=== PATIENT | female | born 1990 | race Caucasian/White ===

== ENCOUNTER 2016-05-01 05:49 | Outpatient (CLI) | payer OTHER ==
[~2016-05-01] VITALS: Ht 165.1 cm; Wt 65.5 kg
[~2016-05-01 05:49] MED LIST: PRENATAL1 TA7 PO
[2016-05-01 06:18] VITALS: BP 126/94; PULSE 69; TEMP 98.1
[2016-05-01 07:17] VITALS: BP 129/85; PULSE 67
== END 2016-05-01 07:25 | disposition home or self-care (01) ==
LOC: LDRO 05:49
DX: O47.1 False labor at or after 37 completed weeks of gestation (principal); O99.013 Anemia complicating pregnancy, third trimester; Z87.891 Personal history of nicotine dependence; Z3A.38 38 weeks gestation of pregnancy

== ENCOUNTER 2016-05-07 16:03 | Inpatient (IN) | payer OTHER ==
[~2016-05-07] VITALS: Ht 162.6 cm; Wt 64.5 kg
[2016-05-07] VITALS (21 sets, daily range): BP systolic 118–148; BP diastolic 71–100; PULSE 71–125; TEMP 97.9–98.7
[2016-05-07 17:10] LABS: BASO % 0.2 % (0.0-2.0); EOS % 0.2 % (0-4.0); GRAN # 7.8 (1.4-6.5); GRAN % 78.8 % (42.2-75.2); LYMPH # 1.5 (1.2-3.4); LYMPH % 15.4 % (20.0-51.0); MEAN CELL VOLUME 83 fl (80.0-100.0); MEAN CORPUSCULAR HGB CONC 34 g/dl (33.0-37.0); MEAN PLATELET VOLUME 10.6 fl (7.4-10.4); MONO # 0.5 (0.1-0.6); MONO % 4.9 % (1.7-9.3); PLATELET COUNT 197 K/mm3 (130-400); RED BLOOD COUNT 4.04 M/mm3 (4.10-5.30); REDCELL DISTRIBUTION WIDTH-CV 12.5 % (11.5-14.5); WHITE BLOOD COUNT 9.9 K/mm3 (4.8-10.8)
[2016-05-07 17:17] LABS: HEMATOCRIT 33.5 % (37.0-47.0); HEMOGLOBIN 11.3 g/dl (12.5-16.0); MEAN CORPUSCULAR HEMOGLOBIN 28 pg (27.0-31.0)
[2016-05-08] VITALS (14 sets, daily range): BP systolic 107–155; BP diastolic 60–88; PULSE 64–150; TEMP 97.5–98.9
[2016-05-09] MEDS ORDERED: PERCOCET 325 MG1 TA2 PO (08:33)
[2016-05-09] MEDS ORDERED: MOTRIN 600600 MG/TAB PO (08:33)
[2016-05-09 09:11] VITALS: BP 115/64; PULSE 65; TEMP 97.7
[2016-05-09 16:28] VITALS: BP 106/63; PULSE 85; TEMP 98.4
[2016-05-09 21:00] VITALS: BP 131/74; PULSE 68; TEMP 97.1
[2016-05-10 08:50] VITALS: BP 110/70; PULSE 68; TEMP 97
== END 2016-05-10 15:00 | disposition home or self-care (01) | DRG 775 ==
LOC: LDRO 16:03 → LDR 16:10 → OB 16:10
PROVIDERS: Obstetrics & Gynecology
PROC: 10D07Z6 Extraction of Products of Conception, Vacuum, Via Natural or Artificial Opening (ICD-10-PCS; principal; 2016-05-08)
PROC: 0HQ9XZZ Repair Perineum Skin, External Approach (ICD-10-PCS; 2016-05-08)
DX: O42.02 Full-term premature rupture of membranes, onset of labor within 24 hours of rupture (principal); O36.0130 Maternal care for anti-D [Rh] antibodies, third trimester, not applicable or unspecified; O76 Abnormality in fetal heart rate and rhythm complicating labor and delivery; O99.824 Streptococcus B carrier state complicating childbirth; O70.0 First degree perineal laceration during delivery; Z3A.39 39 weeks gestation of pregnancy; Z37.0 Single live birth
CPT/HCPCS: J2540; J2590; J2795; J7120